=== PATIENT | male | born 1975 | race Caucasian/White ===

== ENCOUNTER 2019-12-08 02:31 | Emergency (ER) | payer OTHER ==
[2019-12-08 03:21] LABS: A TYPE INFLUENZA AG NEGATIVE (NEGATIVE); B INFLUENZA AG NEGATIVE (NEGATIVE)
[2019-12-08] MEDS ORDERED: IPRATROPIUM/ALBUTEROL 0.5-2.5 MG/3 ML AMPUL NEB ONE (03:31)
[2019-12-08] MEDS: ALBUTEROL SULFATE 0.083% NEB 2.5 MG/3 ML AMPUL NEB SCH ×2 (03:39→04:08)
--- NOTE | 2019-12-08 04:34 | RADIOLOGY REPORT (SQ) ---
EXAM DESCRIPTION: XR CHEST 1 VIEW COMPLETED DATE/TME: 12/08/2019 03:32 CLINICAL HISTORY: 44 years Male, chest pain sob COMPARISON: None. NUMBER OF VIEWS/TECHNIQUE: 1/AP FINDINGS: Adequate lung volume, clear parenchyma, normal cardiac silhouette, and intact bony thorax. IMPRESSION: No acute cardiopulmonary findings.
--- NOTE | 2019-12-08 05:16 | ER Document Report ---
ED Respiratory Problem - General Chief Complaint: Congestion Stated Complaint: CHEST PAIN, SHORTNESS OF BREATH Time Seen by Provider: 12/08/19 04:29 Notes: Patient is a 44-year-old male who presents emergency department with shortness of breath. Patient has not been out of the country or been exposed to any person with diagnosed COVID 19. He has not had a fever. Patient does have a history of asthma. Prior to my assessment, he received a breathing treatment. Patient states that he is worried that he has COVID 19 because he states that he feels he cannot "extract enough air." Patient states that he has not been taking his Symbicort. TRAVEL OUTSIDE OF THE [place] IN LAST 30 DAYS: No - Related Data Allergies/Adverse Reactions: No Known Allergies Allergy (Verified 09/27/13 17:44) Past Medical History - General Information source: Patient - Social History Smoking Status: Former Smoker Family History: Reviewed & Not Pertinent Patient has suicidal ideation: No Patient has homicidal ideation: No Pulmonary Medical History: Reports: Hx Asthma Denies: Hx Tuberculosis Traumatic Medical History: Reports: Hx Fractures - surgery to Lt. hand Past Surgical History: Reports: Hx Orthopedic Surgery - L thumb. Denies: Hx Pacemaker - Immunizations Hx Diphtheria, Pertussis, Tetanus Vaccination: Yes Hx Pneumococcal Vaccination: 09/25/00 Review of Systems - Review of Systems Notes: REVIEW OF SYSTEMS: CONSTITUTIONAL : Denies recent illness. Denies recent unintentional weight loss. Denies fever, chills, or sweats. EENT: Denies eye, ear, throat, or mouth pain, discharge, or symptoms. Denies nasal or sinus congestion. CARDIOVASCULAR: Denies chest pain. RESPIRATORY: See HPI. GASTROINTESTINAL: Denies nausea, vomiting, and diarrhea. Denies abdominal pain. Denies constipation. GENITOURINARY: Denies difficulty urinating, burning, blood in urine, urgency or frequency. MUSCULOSKELETAL: Denies neck and back pain. Denies joint pain or swelling. SKIN: Denies rash, itchiness, or lesions HEMATOLOGIC : Denies easy bruising or bleeding. LYMPHATIC: Denies swollen, painful, enlarged glands. NEUROLOGICAL: Denies no numbness or tingling denies weakness. Denies headache. Denies altered mental status. Denies alteration in speech. PSYCHIATRIC: Denies stress, anxiety, alteration in sleep patterns, or depression. All other systems reviewed and negative. Physical Exam - Vital signs Vitals: Pulse Resp BP Pulse Ox 92 16 134/84 H 98 12/08/19 03:40 12/08/19 03:40 12/08/19 03:40 12/08/19 03:40 - Notes Notes: PHYSICAL EXAMINATION: GENERAL: Appears well, healthy, well-nourished, no acute distress. HEAD: Normocephalic, atraumatic. EYES: PERRL, conjunctiva normal, all extraocular movements intact, sclera nonicteric ENT: Moist mucous membranes. NECK: Supple, no noticeable swelling, redness, rash. Normal range of motion. LUNGS: Equal breath sounds bilaterally and clear to auscultation. No wheezes rales or rhonchi. CARDIOVASCULAR: S1-S2, regular rate, regular rhythm. Radial pulses 2+, normal. ABDOMEN: Normoactive bowel sounds. Soft, nontender, no guarding, no rebound tenderness, and no masses palpated. EXTREMITIES: Normal strength and range of motion, no pitting or edema. No cyanosis. NEUROLOGICAL: Moves all extremities upon command. Strength 5/5 in all extremities. PSYCH: Normal mood, normal affect. SKIN: Warm, dry. No rash, lesions, ulcerations noted. Normal skin turgor. Course - Re-evaluation Re-evalutation: 12/08/19 05:19 Patient's chest x-ray is negative. No pneumonia noted. Influenza screen is negative. I had a lengthy conversation with the patient in regards to COVID 19. At this time, I have a very low suspicion for COVID 19, as the patient has not had a fever, nor has he traveled to [place]. [place] that he could possibly be exposed to it. I instructed the patient the best thing to do is to wash his hands, cough into his arm, and self isolate. I instructed him to continue to take his Brio or Symbicort, as he has it at home. It is also pollen season, which could exacerbate his asthma. I discussed this with him. Follow-up precautions were given. Verbal discharge instructions were given to the patient. They verbalized understanding. They are stable for discharge. - Vital Signs Vital signs: Temp Pulse Resp BP Pulse Ox 92 16 134/84 H 98 12/08/19 03:40 12/08/19 03:40 12/08/19 03:40 12/08/19 03:40 Discharge - Discharge Clinical Impression: Shortness of breath Condition: Stable Disposition: HOME, SELF-CARE Additional Instructions: You were seen today in the emergency department for shortness of breath. If you feel you have COVID 19, please self isolate yourself and do not go anywhere. If you develop a fever, take ibuprofen 600 mg and acetaminophen 1000 mg every 6 hours. Follow-up with your primary care provider. I highly suggest that you be on your inhaled corticosteroid every day.
[2019-12-08 05:25] VITALS: BP 135/79
--- NOTE | 2019-12-09 00:34 | EKG REPORT ---
SEVERITY:- NORMAL ECG - SINUS RHYTHM : Confirmed by: Diana Meng 09-Dec-2019 00:33:56
== END 2019-12-08 05:25 | disposition home or self-care (01) ==
LOC: ER 02:31
DX: R07.9 Chest pain, unspecified (principal); R06.02 Shortness of breath; R68.89 Other general symptoms and signs
CPT/HCPCS: 93005; 94640 ×2; 99284; 87804; 71045; 93010; J7620

== ENCOUNTER 2019-12-20 22:02 | Emergency (ER) | payer SELFPAY ==
--- NOTE | 2019-12-20 23:20 | ER Document Report ---
ED Respiratory Problem - General Chief Complaint: Breathing Difficulty Stated Complaint: DIFFICULTY BREATHING Time Seen by Provider: 12/20/19 22:57 Notes: Patient is a 44-year-old male that comes to the emergency department for chief complaint of sensation of shortness of breath. He states that throughout the day he had episodes where he felt like he simply could not catch his breath. He denies chest pain specifically, he denies dizziness, vomiting, nausea, fever/chills, sore throat, congestion. He states he has asthma but has not been wheezing and has not needed his inhaler. He denies smoking, alcohol, recreational drugs. He denies medical history other than asthma. He denies family history of cardiovascular disease. He denies recent travel, recent surgery, lower extremity swelling, history of DVT/PE. He states that currently he feels improved but he still is intermittently getting with sensation of shortness of breath. He does admit to having reduced hydration today. TRAVEL OUTSIDE OF THE [place] IN LAST 30 DAYS: No - Related Data Allergies/Adverse Reactions: No Known Allergies Allergy (Verified 09/27/13 17:44) Home Medications: duoneb. symbicort Past Medical History - General Information source: Patient - Social History Smoking Status: Former Smoker Chew tobacco use (# tins/day): Yes - 1 Frequency of alcohol use: None Drug Abuse: None Lives with: Family Family History: Reviewed & Not Pertinent Patient has suicidal ideation: No Patient has homicidal ideation: No Pulmonary Medical History: Reports: Hx Asthma Denies: Hx Tuberculosis Traumatic Medical History: Reports: Hx Fractures - surgery to Lt. hand Past Surgical History: Reports: Hx Orthopedic Surgery - L thumb. Denies: Hx Pacemaker - Immunizations Hx Diphtheria, Pertussis, Tetanus Vaccination: Yes Hx Pneumococcal Vaccination: 09/25/00 Review of Systems - Review of Systems Constitutional: No symptoms reported EENT: No symptoms reported Cardiovascular: No symptoms reported Respiratory: See HPI Gastrointestinal: No symptoms reported Genitourinary: No symptoms reported Male Genitourinary: No symptoms reported Musculoskeletal: No symptoms reported Skin: No symptoms reported Hematologic/Lymphatic: No symptoms reported Neurological/Psychological: No symptoms reported Physical Exam - Vital signs Vitals: Temp Pulse Resp Pulse Ox 98.2 F 66 14 98 12/20/19 22:02 12/20/19 22:02 12/20/19 22:02 12/20/19 22:02 - Notes Notes: GENERAL: Alert, interacts well. No acute distress. HEAD: Normocephalic, atraumatic. EYES: Pupils equal, round, and reactive to light. Extraocular movements intact. ENT: Oral mucosa dry, tongue midline. Oropharynx unremarkable. Airway patent. LUNGS: Clear to auscultation bilaterally, no wheezes, rales, or rhonchi. No respiratory distress. HEART: Regular rate and rhythm. No murmur ABDOMEN: Soft, non-tender. Non-distended. EXTREMITIES: Moves all 4 extremities spontaneously. No edema, normal radial and dorsalis pedis pulses bilaterally. No cyanosis. BACK: no cervical, thoracic, lumbar midline tenderness. No saddle anesthesia, normal distal neurovascular exam. Moves all extremities in full range of motion. NEUROLOGICAL: Alert and oriented x3. Normal speech. Cranial nerves II through XII grossly intact. PSYCH: Normal affect, normal mood. SKIN: Warm, dry, normal turgor. No rashes or lesions noted. Course - Re-evaluation Re-evalutation: Chest x-ray negative. Work-up is still pending and was unfortunately delayed, I was called back into the room by the patient. He states he would like to leave. He states he would like to be prescribed albuterol medication with ipratropium bromide (he shows me an empty one that he had used up), and he was to be discharged. I strongly advised him to stay for additional work-up to rule out other etiologies of shortness of breath based on his nonspecific shortness of breath without wheezing or coughing noted on exam. I advised him that he could have MD, pulmonary embolism, or other dangerous or even life-threatening etiology and I recommended we check for this. Patient refused. Patient states he would like to be discharged, prescribed his medication, he states he will return if he worsens in any way, he denies any current symptoms. I believe patient is completely coherent and able to make this decision, patient signed out AGAINST MEDICAL ADVICE on request. - Vital Signs Vital signs: Temp Pulse Resp BP Pulse Ox 98.0 F 64 16 124/87 H 99 12/21/19 01:17 12/21/19 01:17 12/21/19 01:17 12/21/19 01:17 12/21/19 01:17 Discharge - Discharge Clinical Impression: Shortness of breath Disposition: AGAINST MEDICAL ADVICE Additional Instructions: Your work-up to this point is reassuring but I do not know the cause of your shortness of breath and you did not complete your testing today. You are signing out AGAINST MEDICAL ADVICE. There is a chance that you have an underlying dangerous or even fatal condition. You have been provided with duo nebs to use if needed for coughing and wheezing. Please return at anytime for additional work-up and evaluation. Prescriptions: Ipratropium/Albuterol Sulfate [Duoneb 3 ml Ampul] 3 ml NEB NOW #30 vial.neb Forms: Return to Work
--- NOTE | 2019-12-20 23:53 | RADIOLOGY REPORT (SQ) ---
CLINICAL INDICATION: shortness of breath. TECHNIQUE: A single portable AP view was obtained of the chest at 2331 hours. Additional repeat image COMPARISON: December 08, 2019. FINDINGS: The cardiomediastinal silhouette is normal. The lungs are grossly clear. No evidence of effusion or pneumothorax. The visualized bones are unremarkable. IMPRESSION: No evidence of active intrathoracic disease. No adverse change
[2019-12-21 01:19] VITALS: BP 124/87
--- NOTE | 2019-12-21 10:05 | EKG REPORT ---
SEVERITY:- ABNORMAL ECG - SINUS RHYTHM NONSPECIFIC INTRAVENTRICULAR CONDUCTION DELAY : Confirmed by: Carlin Issa MD 21-Dec-2019 10:04:32
== END 2019-12-21 01:30 | disposition left against medical advice (07) ==
LOC: ER 22:02
DX: J45.909 Unspecified asthma, uncomplicated (principal); R06.02 Shortness of breath; Z72.0 Tobacco use; Z53.20 Procedure and treatment not carried out because of patient's decision for unspecified reasons
CPT/HCPCS: 71045; 93005; 93010; 99285

== ENCOUNTER → 2019-12-24 | Outpatient (CLI) | payer OTHER ==
[2019-12-24 11:35] LABS: ABSOLUTE BASOPHILS # (AUTO) 0.1 10^3/uL (0.0-0.2); ABSOLUTE EOSINOPHILS # (AUTO) 0.2 10^3/uL (0.0-0.6); ABSOLUTE LYMPHOCYTES (AUTO) 1.4 10^3/uL (0.5-4.7); ABSOLUTE MONOCYTES (AUTO) 0.4 10^3/uL (0.1-1.4); ABSOLUTE NEUT (AUTO) 3.5 10^3/uL (1.7-8.2); BASOPHILS % (AUTO) 1.2 % (0-2); EOSINOPHILS % (AUTO) 3.1 % (0-6); HEMATOCRIT 42.5 % (37.9-51.0); HEMOGLOBIN 14.3 g/dL (13.5-17.0); LYMPHOCYTES % (AUTO) 24.8 % (13-45); MEAN CORPUSCULAR HEMOGLOBIN 28.5 pg (27.0-33.4); MEAN CORPUSCULAR HGB CONC 33.7 g/dL (32.0-36.0); MEAN CORPUSCULAR VOLUME 85 fl (80-97); MONOCYTES % (AUTO) 7.6 % (3-13); PLATELET COUNT 275 10^3/uL (150-450); RED BLOOD COUNT 5.02 10^6/uL (4.35-5.55); SEGMENTED NEUTROPHILS % (AUTO) 63.3 % (42-78); TOTAL CELLS COUNTED % (AUTO) 100 %; WHITE BLOOD COUNT 5.5 10^3/uL (4.0-10.5)
[2019-12-24 12:04] LABS: ALBUMIN 4.7 g/dL (3.5-5.0); ALKALINE PHOSPHATASE 62 U/L (38-126); ANION GAP 11 (5-19); ASPARTATE AMINO TRANSFERASE 26 U/L (17-59); BILIRUBIN,DIRECT 0.2 mg/dL (0.0-0.4); BILIRUBIN,TOTAL 0.8 mg/dL (0.2-1.3); BLOOD UREA NITROGEN 14 mg/dL (7-20); CALCIUM 9.8 mg/dL (8.4-10.2); CARBON DIOXIDE 27 mmol/L (22-30); CHLORIDE 102 mmol/L (98-107); GLUCOSE 94 mg/dL (75-110); POTASSIUM 4.5 mmol/L (3.6-5.0); TOTAL PROTEIN 7.9 g/dL (6.3-8.2)
== END ==
LOC: OD 10:35
PROVIDERS: ATTEND Registered Nurse
DX: R06.02 Shortness of breath (principal)
CPT/HCPCS: 36415; 80053; 85025; 85379